=== PATIENT | male | born 1945 | race Caucasian/White ===

== ENCOUNTER → 2018-05-25 10:34 | Outpatient (CLI) | payer MEDICARE, SELFPAY ==
[2018-05-25 11:58] LABS: Add Manual Diff / Slide Review NO; Basophils Percent Auto 0.8 % (0-2); Eosinophils Percent Auto 0.8 % (2-4); Hematocrit 42.4 % (41-53); Hemoglobin 14.7 g/dL (13.5-17.5); Lymphocytes Percent Auto 12.2 % (25-40); Mean Corpuscular HGB Conc 34.6 % (30-36); Mean Corpuscular Hemoglobin 33.6 PG (26-34); Neutrophils Absolute Auto 5400 /uL (3000-5900); Neutrophils Percent Auto 80.2 % (50-75); Platelet Count 145 X10^3/uL (150-400); Red Blood Cell Count 4.37 X10^6/uL (4.5-5.9); Red Cell Distribution Width 14.3 % (11.6-14.8); White Blood Cell Count 6.7 X10^3/uL (4.5-11.0)
[2018-05-25 12:09] LABS: Erythrocyte Sedimentation Rate 8 MM/HR (0-15)
[2018-05-25 12:36] LABS: Alanine Aminotransferase 64 IU/L (21-72); Albumin 3.9 g/dL (3.5-5.0); Albumin Globulin Ratio 1.6 (1.0-2.8); Alkaline Phosphatase 78 U/L (38-126); Aspartate Aminotransferase 29 IU/L (17-59); Bilirubin Total 0.7 mg/dL (0.2-1.3); Bilirubin Unconjugated 0.5 mg/dL (0.0-1.1); C-Reactive Protein Quant 0.6 mg/dL (<1.0); Globulin 2.5 g/dL (1.7-4.1); HEMOLYSIS < 15 (0-50); Total Protein 6.4 g/dL (6.3-8.2); Uric Acid 4.7 mg/dL (3.5-8.5)
== END ==
DX: L40.59 Other psoriatic arthropathy (principal); L40.8 Other psoriasis; M10.09 Idiopathic gout, multiple sites
CPT/HCPCS: 36415; 80076; 84550; 85025; 85651; 86140